=== PATIENT | male | born 1995 | race Caucasian/White ===

== ENCOUNTER 2018-06-26 14:46 | Emergency (ER) | payer MEDICAID ==
[~2018-06-26] VITALS: Ht 170.2 cm; Wt 63.8 kg
[2018-06-26 14:52] VITALS: BP 116/83
[2018-06-26] MEDS ORDERED: LIDOcaine 1% 30ml preserv. free vial IJ ONE (15:30)
[2018-06-26] MEDS ORDERED: ketorolac tromethamine 15mg/ml inj. IM ONE (15:30)
== END 2018-06-26 16:09 | disposition home or self-care (01) ==
LOC: ER 14:46
DX: S01.111A Laceration without foreign body of right eyelid and periocular area, initial encounter (principal); M54.9 Dorsalgia, unspecified; W20.8XXA Other cause of strike by thrown, projected or falling object, initial encounter; Y93.89 Activity, other specified; Y92.89 Other specified places as the place of occurrence of the external cause; Y99.8 Other external cause status
CPT/HCPCS: 12011; 96372; 99283; J1885